=== PATIENT | female | born 1960 | race Caucasian/White ===

== ENCOUNTER 2017-03-05 22:19 | Emergency (ER) | payer MEDICARE ==
[2017-03-06] MEDS ORDERED: HYDROmorphone* 1 MG/ML 1 ML SYR IV ONE (01:22)
[2017-03-06] MEDS ORDERED: Ondansetron INJ* 2 MG/ML VIAL IV ONE (01:22)
[2017-03-06] MEDS ORDERED: NS 0.9% 1000 ML* 2,000 ML IV ONE (01:22)
[2017-03-06] MEDS ORDERED: Metoclopramide IV* 5 MG/ML 2 ML VIAL IV ONE (02:00)
[2017-03-06 02:22] LABS: Urine Bilirubin Negative (Negative); Urine Glucose Negative (Negative); Urine Nitrite Negative (Negative)
[2017-03-06 02:42] LABS: Hematocrit 44 % (35-47); Hemoglobin 14.6 g/dl (12.0-16.0); Mean Corpuscular HGB Conc 33 g/dl (31-36); Mean Corpuscular Hemoglobin 31 pg (27-31); Mean Corpuscular Volume 93 fL (80-97); Mean Platelet Volume 9 um3 (7.4-10.4); Red Blood Count 4.71 10^6/ul (4.0-5.4); Red Cell Distribution Width 13 % (10.5-15); White Blood Count 7.4 10^3/ul (3.5-10.8)
[2017-03-06 02:55] LABS: ALT 44 U/L (7-52); AST 74 U/L (13-39); Albumin 3.9 g/dL (3.2-5.2); Alkaline Phosphatase 48 U/L (34-104); Amylase 22 U/L (29-103); Anion Gap 6 mmol/L (2-11); BUN/Creatinine Ratio 17.1 (8-20); Blood Urea Nitrogen 14 mg/dL (6-24); C Reactive Protein 2.95 mg/L (< 5.00); CO2 Carbon Dioxide 27 mmol/L (22-32); Calcium 9.4 mg/dL (8.6-10.3); Chloride 100 mmol/L (101-111); EGFR African American 93.1 (>60); EGFR Non-African American 72.4 (>60); Globulin 3.4 g/dL (2-4); Glucose 107 mg/dL (70-100); Lipase < 10 U/L (11.0-82.0); Sodium 133 mmol/L (133-145); Total Protein 7.3 g/dL (6.4-8.9)
[2017-03-06] MEDS ORDERED: Iohexol 300* (CONTRAST) 10 ML SDV IV ONE (03:58)
--- NOTE | 2017-03-06 06:12 | ED ---
Kadi Thorpe Alok, scribed for Raghu Jackson MD on 03/06/17 at 0153 . Abdominal Pain/Female - HPI Summary HPI Summary: 56F presents to the ED with RUQ pain since 1730 this afternoon. Pt states this pain has been constant but is less intense now versus during her arrival to the ED. Her pain is worsened with deep breaths. Pt notes abd distention earlier and lower lip swelling. Pt vomited twice today. Pt notes decreased appetite and denies constipation. Pt denies dysuria or changes in urine color. PMHx includes fibromyalgia and h/o kidney stones. Pt is allergic to Meperidine and Ciprofloxacin. - History of Current Complaint Chief Complaint: EDAbdPain Stated Complaint: UPPER ABD PAIN,VOMITING Time Seen by Provider: 03/06/17 01:03 Hx Obtained From: Patient Hx Last Menstrual Period: 4 MONTHS AGO - PERIMENOPAUSAL TUBAL 26 YEARS AGO Onset/Duration: Lasting Hours, Still Present Timing: Constant Severity Initially: Moderate Severity Currently: Moderate Pain Intensity: 8 Pain Scale Used: 0-10 Numeric Location: Discrete At: RUQ Radiates: No Aggravating Factor(s): Deep Breaths Alleviating Factor(s): Nothing Associated Signs and Symptoms: Positive: Decreased Appetite, Vomiting. Negative : Constipation, Urinary Symptoms Allergies/Adverse Reactions: Allergies Allergy/AdvReac Type Severity Reaction Status Date / Time Meperidine [From Demerol HCl] Allergy Severe Anaphylatic Verified 12/28/15 13:55 Shock Ciprofloxacin [From Cipro] Allergy Intermediate Rash And Verified 12/28/15 13:55 Itching PMH/Surg Hx/FS Hx/Imm Hx Endocrine/Hematology History: Denies: Hx Diabetes, Hx Thyroid Disease Cardiovascular History: Denies: Hx Congestive Heart Failure, Hx Hypertension, Hx Pacemaker/ICD Respiratory History: Denies: Hx Asthma, Hx Chronic Obstructive Pulmonary Disease (COPD) GI History: Denies: Hx Ulcer History: Comment Only: Hx Renal Disease - HX OF KIDNEY STONES Sensory History: Denies: Hx Hearing Aid Psychiatric History: Denies: Hx Panic Disorder - Surgical History Surgery Procedure, Year, and Place: 1988 TUBAL LIGATION. 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 The skin is warm and dry and skin color reflects adequate perfusion. HEENT: The head is normocephalic and atraumatic. The pupils are equal and reactive. The conjunctivae are clear and without drainage. Nares are patent and without drainage. Mouth reveals moist mucous membranes and the throat is without erythema and exudate. Positive slight lip edema. Neck is supple with full range of motion and non-tender. There are no carotid bruits. There is no neck vein distension. Respiratory: Chest is non-tender. Lungs are clear to auscultation and breath sounds are symmetrical and equal. Cardiovascular: Heart is regular rate and rhythm. There is no murmur or rub auscultated. There is no peripheral edema and pulses are symmetrical and equal. Abdomen: The abdomen is soft with right upper quadrant tenderness with guarding. There are normal bowel sounds heard in all four quadrants and there is no organomegaly palpated. No McBurney's point tenderness. Musculoskeletal: There is no back pain noted. No CVA tenderness. Extremities are non-tender with full range of motion. There is good capillary refill. There is no peripheral edema or calf tenderness elicited. No leg tenderness. Neurological: Patient is alert and oriented to person, place and time. The patient has symmetrical motor strength in all four extremities. Cranial nerves are grossly intact. Deep tendon reflexes are symmetrical and equal in all four extremities. Psychiatric: The patient has an appropriate affect and does not exhibit any anxiety or depression. Triage Information Reviewed: Yes Vital Signs On Initial Exam: Initial Vitals Temp Pulse Resp BP Pulse Ox 97.7 F 68 22 154/82 100 03/05/17 22:34 03/05/17 22:34 03/05/17 22:34 03/05/17 22:34 03/05/17 22:34 Vital Signs Reviewed: Yes - Melcroft Coma Scale Coma Scale Total: 15 Diagnostics - Vital Signs Vital Signs Temp Pulse Resp BP Pulse Ox 03/06/17 00:18 58 99 03/06/17 00:17 98.5 F 58 16 139/74 97 03/05/17 22:34 97.7 F 68 22 154/82 100 - Laboratory Lab Results: Lab Results 03/06/17 03/06/17 03/06/17 Range/Units 02:07 02:25 02:25 WBC 7.4 (3.5-10.8) 10^3/ul RBC 4.71 (4.0-5.4) 10^6/ul Hgb 14.6 (12.0-16.0) g/dl Hct 44 (35-47) % MCV 93 (80-97) fL MCH 31 (27-31) pg MCHC 33 (31-36) g/dl RDW 13 (10.5-15) % Plt Count 222 (150-450) 10^3/ul MPV 9 (7.4-10.4) um3 Neut % (Auto) 72.2 (38-83) % Lymph % (Auto) 20.8 L (25-47) % [place] % (Auto) 4.9 (1-9) % Eos % (Auto) 0.8 (0-6) % Baso % (Auto) 1.3 (0-2) % Absolute Neuts (auto) 5.3 (1.5-7.7) 10^3/ul Absolute Lymphs (auto) 1.5 (1.0-4.8) 10^3/ul Absolute Monos (auto) 0.4 (0-0.8) 10^3/ul Absolute Eos (auto) 0.1 (0-0.6) 10^3/ul Absolute Basos (auto) 0.1 (0-0.2) 10^3/ul Absolute Nucleated RBC 0 10^3/ul Nucleated RBC % 0 Sodium 133 (133-145) mmol/L Potassium 4.0 (3.5-5.0) mmol/L Chloride 100 L (101-111) mmol/L Carbon Dioxide 27 (22-32) mmol/L Anion Gap 6 (2-11) mmol/L BUN 14 (6-24) mg/dL Creatinine 0.82 (0.51-0.95) mg/dL Est GFR ( Amer) 93.1 (>60) Est GFR (Non-Af Amer) 72.4 (>60) BUN/Creatinine Ratio 17.1 (8-20) Glucose 107 H (70-100) mg/dL Lactic Acid (0.5-2.0) mmol/L Calcium 9.4 (8.6-10.3) mg/dL Total Bilirubin 1.00 (0.2-1.0) mg/dL AST 74 H (13-39) U/L ALT 44 (7-52) U/L Alkaline Phosphatase 48 (34-104) U/L C-Reactive Protein 2.95 (< 5.00) mg/L Total Protein 7.3 (6.4-8.9) g/dL Albumin 3.9 (3.2-5.2) g/dL Globulin 3.4 (2-4) g/dL Albumin/Globulin Ratio 1.1 (1-3) Amylase 22 L (29-103) U/L Lipase < 10 L (11.0-82.0) U/L Urine Color Yellow Urine Appearance Clear Urine pH 8.0 (5-9) Ur Specific [place] 1.010 (1.010-1.030) Urine Protein Negative (Negative) Urine Ketones Negative (Negative) Urine Blood Negative (Negative) Urine Nitrate Negative (Negative) Urine Bilirubin Negative (Negative) Urine Urobilinogen Negative (Negative) Ur Leukocyte Esterase Negative (Negative) Urine Glucose Negative (Negative) 03/06/17 Range/Units 02:25 WBC (3.5-10.8) 10^3/ul RBC (4.0-5.4) 10^6/ul Hgb (12.0-16.0) g/dl Hct (35-47) % MCV (80-97) fL MCH (27-31) pg MCHC (31-36) g/dl RDW (10.5-15) % Plt Count (150-450) 10^3/ul MPV (7.4-10.4) um3 Neut % (Auto) (38-83) % Lymph % (Auto) (25-47) % [place] % (Auto) (1-9) % Eos % (Auto) (0-6) % Baso % (Auto) (0-2) % Absolute Neuts (auto) (1.5-7.7) 10^3/ul Absolute Lymphs (auto) (1.0-4.8) 10^3/ul Absolute Monos (auto) (0-0.8) 10^3/ul Absolute Eos (auto) (0-0.6) 10^3/ul Absolute Basos (auto) (0-0.2) 10^3/ul Absolute Nucleated RBC 10^3/ul Nucleated RBC % Sodium (133-145) mmol/L Potassium (3.5-5.0) mmol/L Chloride (101-111) mmol/L Carbon Dioxide (22-32) mmol/L Anion Gap (2-11) mmol/L BUN (6-24) mg/dL Creatinine (0.51-0.95) mg/dL Est GFR ( Amer) (>60) Est GFR (Non-Af Amer) (>60) BUN/Creatinine Ratio (8-20) Glucose (70-100) mg/dL Lactic Acid 0.9 (0.5-2.0) mmol/L Calcium (8.6-10.3) mg/dL Total Bilirubin (0.2-1.0) mg/dL AST (13-39) U/L ALT (7-52) U/L Alkaline Phosphatase (34-104) U/L C-Reactive Protein (< 5.00) mg/L Total Protein (6.4-8.9) g/dL Albumin (3.2-5.2) g/dL Globulin (2-4) g/dL Albumin/Globulin Ratio (1-3) Amylase (29-103) U/L Lipase (11.0-82.0) U/L Urine Color Urine Appearance Urine pH (5-9) Ur Specific [place] (1.010-1.030) Urine Protein (Negative) Urine Ketones (Negative) Urine Blood (Negative) Urine Nitrate (Negative) Urine Bilirubin (Negative) Urine Urobilinogen (Negative) Ur Leukocyte Esterase (Negative) Urine Glucose (Negative) Result Diagrams: 03/06/17 02:25 03/06/17 02:25 Lab Statement: Any lab studies that have been ordered have been reviewed, and results considered in the medical decision making process. - CT abd/pel CT CT Interpretation: Positive (See Comments) - Dilated gallbladder with pericholecystic fat stranding, advise ultrasound to assess for acute cholecystitis. No bowel obstruction, colitis, free fluid or free air. Normal appendix. Diverticulosis colon. Unremarkable pancreas. Caliectasis lower pole left kidney. Borderline thickened lower esphagus, possibly esophagitis. Small hiatal hernia. Old granulomatous disease right lung and spleen. 1.7 cm pleural lipoma along right hmidiaphragm. CT Interpretation Completed By: Radiologist - Additional Comments Diagnostic Additional Comments: abdominal US - Pending results Re-Evaluation - Re-Evaluation First Eval Re-Evaluation Time: 03:07 Change: Improved Comment: PT's pain has improved Second Eval Re-Evaluation Time: 05:17 Change: Improved Comment: Pt is still in pain though improved from before. CT recommending US. Abdominal Pain Fem Course/Dx - Course Course Of Treatment: 56 y/o female presents with right upper quadrant pain. Bloodwork and CT done. Spoke with CT who recommended US done. Will sign-out patient at shift change for disposition pending US. - Diagnoses Differential Diagnosis: Positive: Gall Bladder Disease, Renal Colic Provider Diagnoses: Biliary colic Discharge - Discharge Plan Condition: Stable Disposition: OTHER Discharge Disposition Comment: Patient signed out to Dr. Carvajal at Shift change Referrals: Non Staff,Doctor [Primary Care Provider] - The documentation as recorded by the Kadi isaacs Alok accurately reflects the service I personally performed and the decisions made by me, Raghu Jackson MD.
--- NOTE | 2017-03-06 07:55 | RAD ---
CLINICAL HISTORY: Right upper quadrant pain and vomiting COMPARISON: July 24, 2015 TECHNIQUE: Multiple contiguous axial CT scans were obtained of the abdomen and pelvis after the administration of intravenous contrast. Coronal and sagittal multiplanar reformations are submitted for review. Oral contrast was administered. Delayed images were obtained through the abdomen and pelvis. FINDINGS: LUNG BASES: There is a small lipoma along the diaphragmatic surface of the right lung base. Can be identified on previous examination and is stable. There is a calcified granuloma of the right lower lobe LIVER: The liver is diffusely low in attenuation compared to the spleen. There are no focal hepatic parenchymal masses. BILE DUCTS: There is no intrahepatic or extrahepatic biliary dilatation. GALLBLADDER: The gallbladder is distended. No gallstones are noted. There is minimal stranding of the pericholecystic fat PANCREAS: The pancreas is normal, without mass or ductal dilatation. SPLEEN: Normal in size and appearance. UPPER GI TRACT: Evaluation of the gastrointestinal tract is limited by incomplete gastric distention. There is a small sliding hiatal hernia SMALL BOWEL AND MESENTERY: The small bowel is normal in contour, course, and caliber. There is no obstruction or dilatation. COLON: There are multiple diverticula of the sigmoid colon. There is no pericolonic inflammatory change. ADRENALS: Normal bilaterally. KIDNEYS: The kidneys are normal in shape, size, contour, and axis. There is no hydronephrosis or nephrolithiasis. There are parapelvic cysts of the left kidney. BLADDER: The bladder is smooth in contour. PELVIC ORGANS: The uterus is fibroid. AORTA: The aorta is normal. IVC: Unremarkable LYMPH NODES: There is no lymphadenopathy by size criteria. ABDOMINAL WALL: There is no evidence for abdominal wall hernia. BONES AND SOFT TISSUES: Unremarkable OTHER: None IMPRESSION: 1. MINIMAL PERICHOLECYSTIC INFLAMMATORY CHANGE. THIS IS NONSPECIFIC THOUGH THE DIFFERENTIAL IS INCLUDED ACUTE CHOLECYSTITIS. RECOMMEND CONSIDERATION OF CORRELATION WITH ULTRASOUND OF THE RIGHT UPPER QUADRANT TO EVALUATE FOR RADIOLUCENT GALLSTONES. 2. SMALL SLIDING HIATAL HERNIA. 3. FATTY LIVER. 4. FIBROID UTERUS. 5. DIVERTICULOSIS..
--- NOTE | 2017-03-06 08:23 | RAD ---
HISTORY: Right upper quadrant pain COMPARISONS: CT dated March 06, 2017 TECHNIQUE: Multiple transverse and longitudinal ultrasound images were obtained of the right upper quadrant of the abdomen using grayscale and color Doppler imaging. FINDINGS: LIVER: The liver is diffusely echogenic and coarse in echotexture, with decreased acoustic transmission. The liver is otherwise normal in shape, size, and contour. There is normal hepatopedal flow of the portal vein on Doppler imaging. BILIARY TREE: There is no intrahepatic or extrahepatic biliary dilatation. The common duct measures 0.5 cm. GALLBLADDER: The gallbladder is distended. Multiple shadowing echogenic foci consistent with gallstones are noted. There is no gallbladder wall thickening or pericholecystic fluid. A positive sonographic Peterson sign is reported. PANCREAS: The pancreas is obscured by overlying bowel gas. RIGHT KIDNEY: The right kidney is normal in shape, size, contour, and echogenicity. There is no hydronephrosis or nephrolithiasis. The right kidney measures 10.3 x 4.7 x 5.6 cm. AORTA AND IVC: The aorta and IVC are unremarkable. FLUID: There are no pleural effusions. There is no free fluid within the hepatorenal recess. OTHER FINDINGS: None. IMPRESSION: 1. CHOLELITHIASIS WITH A POSITIVE SONOGRAPHIC PETERSON'S SIGN. GIVEN THE ASSOCIATED MILD PERICHOLECYSTIC CHANGE ON CT, THIS IS CONCERNING FOR ACUTE CHOLECYSTITIS. 2. FATTY INFILTRATION OF THE LIVER
[2017-03-06 08:54] VITALS: BP 105/65
[2017-03-06] MEDS ORDERED: Amoxicillin/Clavulanate TAB* 875 MG PO ONE (10:41)
--- NOTE | 2017-03-06 15:39 | CONS ---
CC: [facility] SURGICAL CONSULTATION REPORT: DATE OF CONSULT: 03/06/17 - EMERGENCY DEPT LOCATION: This patient was seen in the emergency department at [facility] on . CHIEF COMPLAINT: Right upper quadrant abdominal pain. HISTORY OF PRESENT ILLNESS: The patient is a 56-year-old female who presented to the emergency department on 03/05/17, complaining of right upper quadrant pain that started around 5:30 p.m. yesterday. She reported that the pain was constant and worsened with deep breath. She also noted abdominal distention. She vomited twice before coming to the emergency room. She notes decreased appetite. She states that she has been having formed brown stools and did not notice any change in the color of her urine and did not have any dysuria. CAT scan of the abdomen and pelvis in the emergency room revealed distended gallbladder with minimal stranding of pericholecystic fat. Gallbladder ultrasound revealed cholelithiasis, no gallbladder wall thickening or pericholecystic fluid; positive Peterson's sign was noted and therefore there was concern for acute cholecystitis; fatty infiltration of the liver was also noted. White blood cell count normal at 7.4; total bilirubin 1.00, AST slightly elevated at 74, ALT normal at 44, amylase and lipase were within normal limits as well as electrolytes were within normal limits. Currently, the patient states that she has less abdominal discomfort and denies any nausea and has been up walking to the bathroom and wishes to go home. PAST MEDICAL HISTORY: Significant for fibromyalgia, nephrolithiasis and shingles. PAST SURGICAL HISTORY: Limited to tubal ligation. CURRENT MEDICATIONS: No active medications. ALLERGIES: MEPERIDINE and CIPRO. FAMILY HISTORY: Negative for cardiac disease, hypertension, or diabetes. 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 REVIEW OF SYSTEMS: Negative to detailed questioning other than is in history of present illness. PHYSICAL EXAM: General Survey: The patient is a 56-year-old overweight female , well developed in no acute distress. Blood pressure 105/65, pulse 60 and regular, respiratory rate 16, temperature 97.4 tympanic, O2 saturation 98% on room air. Physical exam was limited to the following. Lungs: Breath sounds bilaterally clear and equal. Heart: Regular rate and rhythm. No murmurs or rubs appreciated. Abdomen: Active bowel sounds, obese, soft, and nondistended. Tender in the right upper quadrant. No guarding. No rebound tenderness. No obvious masses, organomegaly, or evidence of umbilical hernia. Well healed surgical scar at the umbilicus status post tubal ligation. Negative sign. Pelvic and rectal exams deferred. Extremities are warm without edema or skin ulceration. Neurologic: Alert and oriented x3. IMPRESSION: Symptomatic cholelithiasis. PLAN: Discussed with Dr. Carvajal in the emergency department; the patient wishes to go home; I advised clear liquid diet for 24 hours and [facility]; she will be discharged by Dr. Carvajal and all of her questions were answered. TIME SPENT: Sixty minutes with greater than 50% in history taking and patient counseling. YESSY DYSON NP [id number]/[facility] #: [id number] [place]
--- NOTE | 2017-03-07 10:47 | PN ---
Progress Note - Progress Note Date of Service: 03/06/17 Note: patient's medication was sent to wrong pharmacy. cancelled at [facility] and sent to [facility] instead.
== END 2017-03-06 11:10 | disposition home or self-care (01) ==
LOC: ED 22:19
DX: K80.20 Calculus of gallbladder without cholecystitis without obstruction (principal); M79.7 Fibromyalgia; Z88.1 Allergy status to other antibiotic agents; K76.0 Fatty (change of) liver, not elsewhere classified
CPT/HCPCS: 36415; 74177; 76705; 80053; 81003; 82150; 83605; 83690; 85025; 86140; 96360; 96374; 96375; 99282; A9270-GY; J1170; J2405; Q9967

== ENCOUNTER 2019-03-22 14:42 | Emergency (ER) | payer MEDICARE ==
[2019-03-22 15:21] VITALS: BP 123/77
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
== END 2019-03-22 15:54 | disposition home or self-care (01) ==
LOC: UCEAST 14:42
DX: M54.2 Cervicalgia (principal); Z79.891 Long term (current) use of opiate analgesic
CPT/HCPCS: 99212; G0463

== ENCOUNTER 2022-12-10 16:34 | Inpatient (IN) ==
[2022-12-10] MEDS ORDERED: Ondansetron 4 mg VIAL 2 MG/ML 2 ml VIAL IV ONE ×3 (17:14→21:48)
[2022-12-10] MEDS ORDERED: Lactated Ringers 1000 ml BAG 1,000 ML IV ONE (17:14)
[2022-12-10] MEDS ORDERED: Thiamine 100 MG/ML 2 ml VIAL 100 MG, Folic Acid IV 1 MG, Multiple Vitamin IV ADULT 10 M... IV ONE (18:00)
[2022-12-10 18:36] LABS: ABS Lymphocytes 0.5 10^3/uL (1.0-4.8); ABS Monocytes 0.4 10^3/uL (0.0-0.9); ABS Neutrophils 6.3 10^3/uL (1.5-7.6); Eosinophil % 0.7 %; Hematocrit 41.5 % (35-45); Hemoglobin 13.8 g/dL (11.5-14.3); Lymphocyte % 6.4 %; Mean Corpuscular Hgb Conc 33.3 g/dL (31-36); Mean Platelet Volume 8.3 fL (7.5-11.2); Platelet Count 161 10^3/uL (150-450); Red Blood Count 4.78 10^6/uL (3.63-4.92); Red Cell Distribution Width 13.5 % (12-17); White Blood Count 7.2 10^3/uL (3.8-11.8)
[2022-12-10 19:25] LABS: Albumin 3.5 g/dL (3.2-5.2); Albumin/Globulin Ratio 1.6 (1-3); C Reactive Protein 2.35 mg/L (<8.01); Calcium 8.5 mg/dL (8.6-10.3); Globulin 2.2 g/dL (2-4); Magnesium 1.8 mg/dL (1.9-2.7); Potassium 3.4 mmol/L (3.5-5.0); Total Protein 5.7 g/dL (6.4-8.9); eGFR CKD-EPI 64.1 (>60)
[2022-12-10] MEDS ORDERED: Morphine 4 MG/ML VIAL (1 ml) IV ONE (19:39)
[2022-12-10] MEDS ORDERED: Iohexol 350 (CONTRAST) 500 ML MDV IV ONE (20:21)
[2022-12-10 22:12] LABS: Urine Appearance Clear; Urine Bilirubin Negative (Negative); Urine Blood Negative (Negative); Urine Color Yellow; Urine Glucose 1+(50 mg/dL) (Negative); Urine Ketones Negative (Negative); Urine Nitrite Negative (Negative); Urine Protein Negative (Negative); Urine Specific Gravity 1.011 (1.002-1.030); Urine Urobilinogen Negative (Negative)
[2022-12-10 22:14] LABS: Urine Bacteria Absent (Absent); Urine Red Blood Cell 1+(3-5/hpf) (Absent); Urine White Blood Cell Trace(0-5/hpf) (Absent)
[2022-12-10] MEDS ORDERED: Polyethylene Glycol 3350 17 GM PACKET PO PRN (23:00)
[2022-12-10] MEDS ORDERED: Enoxaparin 40 MG/0.4 ML SYR SUBCUT SCH (23:00)
[2022-12-10] MEDS ORDERED: Al Hydrox/Mg Hydrox/Simet LIQ 30 ML UDC PO PRN (23:00)
[2022-12-11] MEDS: NS 0.9% 1000 ml BAG 1,000 ML IV SCH ×2 (01:40→13:34)
[2022-12-11 05:53] LABS: ABS Eosinophils 0.1 10^3/uL (0.0-0.5); ABS Lymphocytes 1.5 10^3/uL (1.0-4.8); ABS Monocytes 0.3 10^3/uL (0.0-0.9); ABS Neutrophils 3.2 10^3/uL (1.5-7.6); ABS Nucleated RBC 0.01 10^3/ul; Eosinophil % 1.5 %; Hematocrit 31.1 % (35-45); Hemoglobin 10.3 g/dL (11.5-14.3); Lymphocyte % 29.3 %; Mean Corpuscular Hemoglobin 29.1 pg (27-33); Mean Corpuscular Hgb Conc 33.1 g/dL (31-36); Mean Corpuscular Volume 87.9 fL (80-97); Nucleated Red Blood Cells % 0.1 /100 WBC (0.0-0.4); Platelet Count 188 10^3/uL (150-450); Red Blood Count 3.54 10^6/uL (3.63-4.92); Red Cell Distribution Width 13.3 % (12-17); White Blood Count 5.1 10^3/uL (3.8-11.8)
[2022-12-11 06:38] LABS: Albumin 2.9 g/dL (3.2-5.2); Direct Bilirubin 0.1 mg/dL (0.03-0.18); Indirect Bilirubin 0.6 mg/dL (0.3-1.0); Magnesium 1.7 mg/dL (1.9-2.7); Total Bilirubin 0.7 mg/dL (0.2-1.0)
[2022-12-11 06:44] LABS: Albumin/Globulin Ratio 1.5 (1-3); Creatinine, Serum 0.93 mg/dL (0.51-0.95); Globulin 1.9 g/dL (2-4); Total Protein 4.8 g/dL (6.4-8.9); eGFR CKD-EPI 69.9 (>60)
[2022-12-11] MEDS ORDERED: Magnesium Sulfate IV 3 GM in NS 0.9% 100 ml BAG 100 ML IVPB ONE (08:06)
[2022-12-11] MEDS: Ondansetron 4 mg VIAL 2 MG/ML 2 ml VIAL IV PRN ×2 (09:05→17:51)
[2022-12-11] MEDS ORDERED: Senna TAB 8.6 mg TAB PO PRN (09:39)
[2022-12-11 13:04] LABS: Hematocrit 33.8 % (35-45); Hemoglobin 11.2 g/dL (11.5-14.3); Mean Corpuscular Hemoglobin 29.3 pg (27-33); Mean Corpuscular Hgb Conc 33.1 g/dL (31-36); Mean Corpuscular Volume 88.5 fL (80-97); Mean Platelet Volume 8.5 fL (7.5-11.2); Platelet Count 209 10^3/uL (150-450); Red Blood Count 3.82 10^6/uL (3.63-4.92); Red Cell Distribution Width 13.6 % (12-17); White Blood Count 4.2 10^3/uL (3.8-11.8)
[2022-12-11] MEDS: Polyethylene Glycol 3350 17 GM PACKET PO SCH (13:36)
[2022-12-11] MEDS: Glycerin ADULT 2.4 gm SUPP PR ONE ×2 (13:44→19:39)
[2022-12-11] MEDS ORDERED: NS 0.9% 1000 ml BAG 1,000 ML IV SCH (18:02)
[2022-12-11 18:09] LABS: ABS Basophils 0.1 10^3/uL (0.0-0.1); ABS Eosinophils 0.1 10^3/uL (0.0-0.5); ABS Lymphocytes 1.1 10^3/uL (1.0-4.8); ABS Monocytes 0.5 10^3/uL (0.0-0.9); ABS Neutrophils 6.1 10^3/uL (1.5-7.6); Eosinophil % 1.2 %; Hematocrit 35.6 % (35-45); Hemoglobin 11.9 g/dL (11.5-14.3); Lymphocyte % 14.3 %; Mean Corpuscular Hemoglobin 29.7 pg (27-33); Mean Corpuscular Hgb Conc 33.4 g/dL (31-36); Mean Corpuscular Volume 88.9 fL (80-97); Mean Platelet Volume 8.6 fL (7.5-11.2); Platelet Count 226 10^3/uL (150-450); Red Blood Count 4.01 10^6/uL (3.63-4.92); Red Cell Distribution Width 13.5 % (12-17); White Blood Count 7.9 10^3/uL (3.8-11.8)
[2022-12-12] MEDS: Ondansetron 4 mg VIAL 2 MG/ML 2 ml VIAL IV PRN ×4 (02:39→18:50)
[2022-12-12 05:35] LABS: ABS Eosinophils 0.1 10^3/uL (0.0-0.5); ABS Lymphocytes 1.4 10^3/uL (1.0-4.8); ABS Monocytes 0.3 10^3/uL (0.0-0.9); ABS Neutrophils 2.9 10^3/uL (1.5-7.6); ABS Nucleated RBC 0.01 10^3/ul; Eosinophil % 1.6 %; Hematocrit 32.1 % (35-45); Hemoglobin 10.6 g/dL (11.5-14.3); Lymphocyte % 29.7 %; Mean Corpuscular Hemoglobin 28.9 pg (27-33); Mean Corpuscular Hgb Conc 32.9 g/dL (31-36); Mean Corpuscular Volume 87.9 fL (80-97); Mean Platelet Volume 8.1 fL (7.5-11.2); Nucleated Red Blood Cells % 0.2 /100 WBC (0.0-0.4); Platelet Count 198 10^3/uL (150-450); Red Blood Count 3.65 10^6/uL (3.63-4.92); Red Cell Distribution Width 13.5 % (12-17); White Blood Count 4.6 10^3/uL (3.8-11.8)
[2022-12-12 06:31] LABS: Albumin/Globulin Ratio 1.6 (1-3); Calcium 8.1 mg/dL (8.6-10.3); Creatinine, Serum 1.04 mg/dL (0.51-0.95); Globulin 1.9 g/dL (2-4); Total Bilirubin 0.7 mg/dL (0.2-1.0); Total Protein 4.9 g/dL (6.4-8.9); eGFR CKD-EPI 61.1 (>60)
[2022-12-12] MEDS: Polyethylene Glycol 3350 17 GM PACKET PO SCH (09:05)
[2022-12-12] MEDS ORDERED: Iohexol 350 (CONTRAST) 500 ML MDV IV ONE (13:09)
[2022-12-12] MEDS ORDERED: Methylnaltrexone SQ (NF) 12 MG/0.6 ML VIAL SUBCUT ONE (14:46)
[2022-12-12] MEDS ORDERED: HYDROmorphone 1 MG/1 ML SYRINGE IV SLOW PU PRN ×3 (14:56→14:57)
[2022-12-12] MEDS ORDERED: Methylnaltrexone 150 MG TAB PO SCH (15:00)
[2022-12-12] MEDS ORDERED: HYDROmorphone 0.5 MG/0.5 ML SYRINGE IV SLOW PU PRN (15:13)
[2022-12-12] MEDS: NS 0.9% 1000 ml BAG 1,000 ML IV SCH ×2 (17:47→22:06)
[2022-12-12] MEDS: Enoxaparin 80 MG/0.8 ML SYR SUBCUT SCH (17:59)
[2022-12-13] MEDS: Enoxaparin 80 MG/0.8 ML SYR SUBCUT SCH ×2 (05:50→17:13)
[2022-12-13] MEDS: Ondansetron 4 mg VIAL 2 MG/ML 2 ml VIAL IV PRN ×2 (06:07→09:13)
[2022-12-13 06:16] LABS: ABS Lymphocytes 1.1 10^3/uL (1.0-4.8); ABS Monocytes 0.3 10^3/uL (0.0-0.9); ABS Neutrophils 3.3 10^3/uL (1.5-7.6); Eosinophil % 0.5 %; Hematocrit 32.5 % (35-45); Lymphocyte % 23.1 %; Mean Corpuscular Hemoglobin 29.8 pg (27-33); Mean Corpuscular Hgb Conc 33.9 g/dL (31-36); Mean Corpuscular Volume 87.8 fL (80-97); Mean Platelet Volume 8.2 fL (7.5-11.2); Nucleated Red Blood Cells % 0.1 /100 WBC (0.0-0.4); Platelet Count 218 10^3/uL (150-450); Red Blood Count 3.71 10^6/uL (3.63-4.92); Red Cell Distribution Width 13.5 % (12-17); White Blood Count 4.8 10^3/uL (3.8-11.8)
[2022-12-13 06:53] LABS: Albumin 3.1 g/dL (3.2-5.2); Albumin/Globulin Ratio 1.6 (1-3); Calcium 8.5 mg/dL (8.6-10.3); Creatinine, Serum 1.07 mg/dL (0.51-0.95); Magnesium 1.8 mg/dL (1.9-2.7); Potassium 4.2 mmol/L (3.5-5.0); Total Bilirubin 0.6 mg/dL (0.2-1.0); Total Protein 5.1 g/dL (6.4-8.9); eGFR CKD-EPI 59.1 (>60)
[2022-12-13] MEDS ORDERED: Magnesium Sulfate 2 gm BAG 2 GM/50 ML BAG IVPB ONE (07:14)
[2022-12-13] MEDS: NS 0.9% 1000 ml BAG 1,000 ML IV SCH (08:42)
[2022-12-13] MEDS: Polyethylene Glycol 3350 17 GM PACKET PO SCH (09:09)
[2022-12-13] MEDS: HYDROmorphone 1 MG/1 ML SYRINGE IV SLOW PU PRN ×2 (11:31→21:15)
[2022-12-13] MEDS: Prochlorperazine 5 mg/ml 2 ml VIAL (10 mg) IV PRN ×2 (11:31→20:13)
[2022-12-13] MEDS ORDERED: PEG 3000 GI LAVAGE 1 GALLON PO ONE (13:06)
[2022-12-13] MEDS ORDERED: Methylnaltrexone SQ (NF) 12 MG/0.6 ML VIAL SUBCUT ONE (13:07)
[2022-12-13] MEDS ORDERED: Lactated Ringers 1000 ml BAG 1,000 ML IV ONE (16:37)
[2022-12-13] MEDS: CMCS: Lubiprostone 24 MCG CAP (NF) PO SCH (18:29)
[2022-12-13 21:48] LABS: Hematocrit 33.4 % (35-45); Hemoglobin 11.2 g/dL (11.5-14.3)
[2022-12-14] MEDS: Enoxaparin 80 MG/0.8 ML SYR SUBCUT SCH (04:00)
[2022-12-14 04:26] LABS: Hematocrit 31.7 % (35-45); Hemoglobin 10.8 g/dL (11.5-14.3); Mean Corpuscular Hemoglobin 29.8 pg (27-33); Mean Corpuscular Volume 87.8 fL (80-97); Mean Platelet Volume 8.6 fL (7.5-11.2); Platelet Count 183 10^3/uL (150-450); Red Blood Count 3.61 10^6/uL (3.63-4.92); Red Cell Distribution Width 13.6 % (12-17)
[2022-12-14 05:07] LABS: C Reactive Protein 5.67 mg/L (<8.01)
[2022-12-14] MEDS: Ondansetron 4 mg VIAL 2 MG/ML 2 ml VIAL IV PRN (07:57)
[2022-12-14 08:00] LABS: Albumin/Globulin Ratio 1.4 (1-3); Calcium 8.2 mg/dL (8.6-10.3); Creatinine, Serum 1.02 mg/dL (0.51-0.95); Globulin 2.1 g/dL (2-4); Potassium 3.9 mmol/L (3.5-5.0); Total Bilirubin 0.6 mg/dL (0.2-1.0); Total Protein 5.1 g/dL (6.4-8.9); eGFR CKD-EPI 62.6 (>60)
[2022-12-14] MEDS ORDERED: Methylnaltrexone SQ (NF) 12 MG/0.6 ML VIAL SUBCUT ONE (09:49)
[2022-12-14] MEDS: CMCS: Lubiprostone 24 MCG CAP (NF) PO SCH (10:05)
[2022-12-14] MEDS: Polyethylene Glycol 3350 17 GM PACKET PO SCH (10:06)
[2022-12-14 13:58] VITALS: BP 145/82
[2022-12-16 12:07] LABS: Breast Carcinoma Ag(CA27.29) < 12.0 U/mL (<=38.0)
[2022-12-16 14:32] LABS: CA 15-3 11 U/mL (<30)
== END 2022-12-14 16:50 | disposition home or self-care (01) | DRG 392 ==
LOC: EDHOLD 16:34 → ED 16:34 → SUATTDRO 23:05 → MED 12-11 01:21
PROVIDERS: ADMIT Internal Medicine; ATTEND Internal Medicine